=== PATIENT | male | born 1990 | race Caucasian/White ===

== ENCOUNTER 2020-07-16 22:55 | Emergency (ER) | payer OTHER ==
[~2020-07-16] VITALS: Ht 188 cm; Wt 77.1 kg
[2020-07-16] MEDS ORDERED: MORPHINE SULFATE 4 MG/ML SYR/VIAL IV ONE (23:30)
[2020-07-17] MEDS ORDERED: fentaNYL CITRATE 100 MCG/2 ML VL IV ONE (00:45)
[2020-07-17 02:25] VITALS: BP 128/74
== END 2020-07-17 03:03 | disposition left against medical advice (07) ==
LOC: ER 22:55
DX: M54.2 Cervicalgia (principal); M25.511 Pain in right shoulder; M79.641 Pain in right hand; R51.9 Headache, unspecified; Z87.442 Personal history of urinary calculi; V43.52XA Car driver injured in collision with other type car in traffic accident, initial encounter; Y93.89 Activity, other specified; Y92.488 Other paved roadways as the place of occurrence of the external cause; Y99.8 Other external cause status
CPT/HCPCS: 70450; 71250; 72125; 73030; 73120; 74176; 96374; 96375; 99285; J2270; J3010